=== PATIENT | female | born 1935 | race Caucasian/White ===

== ENCOUNTER 2016-05-16 14:39 | Inpatient (IN) | payer MEDICARE, OTHER ==
--- NOTE | ~2016-05-16 | HP ---
History And Physical [address] [place]. [address] NAME: LOPEZ GARCIA : 37 STATUS : ADM IN [facility]#: [id number] AGE: 80 ADM/REG DATE : 05/16/16 MR#: [id number] REPORT SERV DATE: 05/16/16 DICTATED BY: BUDDY PETERSON DATE: 05/16/16 REPORT STATUS : Draft TRANSCRIBED BY: MODL DATE: 05/16/16 DATE OF ADMISSION: 05/16/2016 HISTORY OF PRESENT ILLNESS: This is a 80-year-old female who comes in for shortness of breath and right leg swelling. The patient is an active individual, and according to her, she is in good health. About four to five days ago, she started having some swelling in her right lower extremity, and then later on, she has been getting some dyspnea on exertion. Two days ago, the daughter noted that she was looking pale and flushed at the same time. The patient noted that when she is having some increasing dyspnea on exertion, but gets better when she sits down. This has gotten worse, finally went to see Dr. Vega, wherein he noted the right leg swelling and did a blood work with a D-dimer that is greater than 20. He then called for a direct admit. The patient did not have any fever or chills, but was having some clammy skin. She denies any dyspnea at rest. She did admit to some dizziness, but no near syncopal or syncopal episode. No cough. There are no chest pains. No new rashes. REVIEW OF SYSTEMS: The rest of the 14-point review of system is negative except as above and that includes no urine or bowel changes. PAST MEDICAL HISTORY: Includes PADs, PVCs, but the patient denies any PAF or any history of atrial fibrillation, hypertension, hypercholesterolemia. She had a hysterectomy, cholecystectomy, five vaginal deliveries, peripheral neuropathy, osteoarthritis, AAA of 4.5 cm, postherpetic neuralgia, history of UTI, annular tear of the lumbar disc at L4-L5, history of H. pylori gastritis, colonic polyps, varicose vein ligation in both legs. ALLERGIES: SHE HAS NO KNOWN DRUG ALLERGIES. MEDICATIONS: Include gabapentin, lisinopril, Lortab, lovastatin, Mobic, promethazine. FAMILY HISTORY: Mom had colon cancer. Dad had CVA. Son has esophageal cancer. Sister with lung cancer. But she denies any family history of blood clots or PEs or blood disorder. SOCIAL HISTORY: The patient does not smoke, drink, or use recreational drugs. Lives with her . They denies any prolonged sitting, recent travel, and the family is saying that she is always active around the house and in her yard. PHYSICAL EXAMINATION: GENERAL: The patient is alert and oriented x3, not in cardiopulmonary distress. VITAL SIGNS: Include a weight of 86.18, height of 5 feet 4 inches, respiratory rate of 16, blood pressure of 120/80, heart rate of 88, with a temperature of 98.6. NECK: She has supple neck. No JVD or carotid bruits. No lymphadenopathy. [place] conjunctivae. Anicteric sclerae. No pharyngeal erythema. LUNGS: No rales, no wheezes. CARDIOVASCULAR: Regular rate and rhythm. No murmurs. ABDOMEN: Positive bowel sounds. Soft, nontender. No masses. Positive edema, right is History And Physical [address] [address] NAME: LOPEZ GARCIA : 37 STATUS : ADM IN [facility]#: [id number] AGE: 80 ADM/REG DATE : 05/16/16 MR#: [id number] REPORT SERV DATE: 05/16/16 DICTATED BY: BUDDY PETERSON DATE: 05/16/16 REPORT STATUS : Draft TRANSCRIBED BY: ARSALAN DATE: 05/16/16 about grade 1 to 2, left is negative. NEURO: Nonlocalizing. LABORATORIES: Reveals a urinalysis which is unremarkable. Blood work reveals a creatinine of 1.12. The rest of the chemistry including troponin and TSH is within normal limits. CBC within normal limits. However, the D-dimer is greater than 20. Chest x-ray, I do not see any acute infiltrates. ASSESSMENT: 1. Dyspnea on exertion. Rule out pulmonary embolism. 2. Right lower extremity deep venous thrombosis. 3. Hypertension. 4. History of abdominal aortic aneurysm. 5. Obesity. 6. Peripheral neuropathy. PLAN: The patient's signs and symptoms, PE, and elevated D-dimer makes me suspicious for a possible PE and right lower extremity DVT. We will empirically start Lovenox and ask case picker to check coverage for the newer anticoagulants. We will check ultrasound, CT, echo, and resume her home medications. This has been discussed with the patient and family and they agreed and understood the plan. MARS/ARSALAN Buddy Peterson M.D. / [id number] CC: Buddy Vega M.D.
--- NOTE | ~2016-05-16 | DS ---
Discharge Summary [facility] [address] [place]. [address] NAME: LOPEZ GARCIA : 37 STATUS : DIS IN PAT#: [id number] AGE: 80 ADM/REG DATE : 05/16/16 MR#: [id number] REPORT SERV DATE: 05/23/16 DICTATED BY: BUDDY PETERSON DATE: 05/22/16 REPORT STATUS : Draft TRANSCRIBED BY: MODLisa DATE: 05/22/16 ADMISSION DATE: 05/16/2016 DISCHARGE DATE: 05/22/2016 FINAL DIAGNOSES: 1. Right upper lung pulmonary embolism. 2. Right lower extremity deep venous thrombosis. 3. Hypertension. 4. Obesity. 5. Thoracic aortic aneurysm. DIAGNOSTIC EXAM: Echocardiogram showing normal left ventricular systolic function with EF of 55%. Mild diastolic dysfunction. Right ventricle is not well seen but probably with normal systolic function. Mild AR. Aneurysmal ascending aorta with maximal dimension of 4.3 cm. CAT scan of the chest with contrast showing moderate right upper lobe pulmonary embolus, no central or left-sided pulmonary embolus demonstrated. Stable right middle lobe pulmonary nodule measuring 4 x 5 mm without appreciable change since 05/20/2009. Stable varices within the anterior mediastinum with prominence of the azygos vein likely due to some stenosis of the left brachiocephalic vein. Stable mild cardiomegaly with moderate calcification of the coronary arteries. Stable aneurysmal dilatation of the ascending thoracic aorta up to 4.4 cm in diameter. Continued nodular changes involving the right thyroid lobe measuring up to 6 mm in size. Ultrasound of the lower extremity showing no evidence of acute left lower extremity DVT. Acute deep thrombosis, right lower extremity from the common femoral to the popliteal vein. HOSPITAL COURSE: Please refer to the H and P done by me dated on 01/13/2017. Briefly this is a 80-year-old female who comes in for shortness of breath. The patient was doing well until 4-5 days ago started having some swelling in the right lower extremity and then later on had dyspnea on exertion. The patient was then brought to the office of Dr. Vega where he believed that the patient had DVT and PE. The patient was then brought here and the test confirmed his findings. The patient was started on Lovenox and Coumadin and did well. We tried to get her to have some newer anticoagulants; however, it will cost her 380 dollars a month and she said she cannot afford it. The patient was then placed on Coumadin and she tolerated it well and discharge INR is 2.1. She also was tested on ambulation and she was doing much better than when she came in, saturating 96% on room air on ambulation. The patient expresses wishes to go home. She said she is going to [facility] where her checks it out. She can also follow up with Dr. Vega for the INR check. The patient will now be discharged on the above diagnosis. She will be on the following medications, lisinopril 40 mg a day and Coumadin 6 mg a day. She was given Coumadin teaching and she is well aware of it as her is also on Coumadin. The patient will follow up with Dr. Vega in one to two weeks. She can get her INR there or in the [facility]. We will try and schedule it on Sunday and the results will be given to Dr. Vega as well. This has been explained to her and she agreed and understood the plan. Discharge Summary [address] [address] NAME: LOPEZ GARCIA : 37 STATUS : DIS IN PAT#: [id number] AGE: 80 ADM/REG DATE : 05/16/16 MR#: [id number] REPORT SERV DATE: 05/23/16 DICTATED BY: BUDDY PETERSON DATE: 05/22/16 REPORT STATUS : Draft TRANSCRIBED BY: ARSALAN DATE: 05/22/16 MARS/ARSALAN Buddy Peterson M.D. / [id number] CC: Buddy Vega M.D.
[2016-05-16 12:33] LABS: HEMATOCRIT 42.3 % (36.0-48.0); HEMOGLOBIN 13.8 g/dL (12.0-16.0); MEAN CORPUS HGB CONC 32.6 g/dL (32.0-36.0); MEAN CORPUSCULAR HEMOGLOB 30.7 pg (26.0-34.0); MEAN PLATELET VOLUME 9.8 fL (9.2-13.0); PLATELET COUNT 183 10/3/uL (150-400); RBC DISTRIBUTION WIDTH 12.8 % (12.0-16.0); WHITE BLOOD CELLS 7.5 10/3/uL (4.5-10.5)
[2016-05-16 12:47] LABS: A/G RATIO 1.2 (0.7-1.9); ALBUMIN 4.1 G/DL (3.5-5.0); CHLORIDE, SERUM 103 MMOL/L (96-112); CO2 (CARBON DIOXIDE) 28 MMOL/L (24-34); CREATININE 1.12 MG/DL (0.55-1.02); GFR AFRICAN AMERICAN 54 ML/MIN (>=60); GFR NON AFRICAN AMERICAN 47 ML/MIN (>=60); GLOBULIN 3.3 G/DL (2.5-4.1); GLUCOSE, SERUM 98 MG/DL (60-99); SGOT(AST) 24 U/L (5-40); SGPT(ALT) 21 U/L (5-65); SODIUM, SERUM 140 MMOL/L (135-148); TOTAL BILIRUBIN 1.3 MG/DL (0-1.2); TOTAL PROTEIN 7.4 G/DL (6.0-8.5); TROPONIN I <0.02 NG/ML (<0.05)
[2016-05-16 13:14] LABS: ALKALINE PHOSPHATASE 100 U/L (45-117); BUN (BLOOD UREA NITROGEN) 28 MG/DL (6-23)
[2016-05-16 13:39] LABS: D-DIMER QUANTITATIVE > 20.00 ug/mLFEU (< 0.50)
[2016-05-16] MEDS ORDERED: LISINOPRIL40 MG PO (15:14)
[2016-05-16 18:17] LABS: INTERNATIONAL NORMAL RATI 1.1 UNITS (-); PROTIME (NOT ORD) 14.2 SEC (12.0-14.5)
[2016-05-16 18:18] LABS: PARTIAL THROMBO TIME 33.2 SEC (22.5-37.2)
[2016-05-17 05:20] LABS: CALCIUM, SERUM 8.1 MG/DL (8.5-10.4); CHLORIDE, SERUM 108 MMOL/L (96-112); CO2 (CARBON DIOXIDE) 26 MMOL/L (24-34); CREATININE 0.87 MG/DL (0.55-1.02); GFR AFRICAN AMERICAN 73 ML/MIN (>=60); GFR NON AFRICAN AMERICAN 63 ML/MIN (>=60); GLUCOSE, SERUM 85 MG/DL (60-99); SODIUM, SERUM 142 MMOL/L (135-148)
[2016-05-17 05:21] LABS: BUN (BLOOD UREA NITROGEN) 24 MG/DL (6-23)
[2016-05-18 05:08] LABS: PROTIME (NOT ORD) 13.4 SEC (12.0-14.5)
[2016-05-19 05:07] LABS: INTERNATIONAL NORMAL RATI 1.1 UNITS (-); PROTIME (NOT ORD) 14.5 SEC (12.0-14.5)
[2016-05-20 06:48] LABS: INTERNATIONAL NORMAL RATI 1.3 UNITS (-); PROTIME (NOT ORD) 15.8 SEC (12.0-14.5)
[2016-05-21 05:55] LABS: INTERNATIONAL NORMAL RATI 1.6 UNITS (-); PROTIME (NOT ORD) 19.2 SEC (12.0-14.5)
[2016-05-22 06:53] LABS: INTERNATIONAL NORMAL RATI 2.1 UNITS (-)
[2016-05-22 06:54] LABS: PROTIME (NOT ORD) 23.5 SEC (12.0-14.5)
[2016-05-22] MEDS ORDERED: C25 PO (09:21)
[2016-10-13] MEDS ORDERED: PRIN20 PO (12:35)
[2016-10-13] MEDS ORDERED: L40 PO (12:36)
[2016-10-13] MEDS ORDERED: LOP25 PO (14:12)
[2016-10-13] MEDS ORDERED: LIPITOR10 PO (14:13)
[2016-10-16] MEDS ORDERED: IMDUR30 PO (10:23)
== END 2016-05-22 11:08 | disposition home or self-care (01) | DRG 299 ==
LOC: 5NO 14:39
PROVIDERS: Internal Medicine
DX: I82.411 Acute embolism and thrombosis of right femoral vein (principal); I26.99 Other pulmonary embolism without acute cor pulmonale; I10 Essential (primary) hypertension; E66.9 Obesity, unspecified; G62.9 Polyneuropathy, unspecified; Z90.49 Acquired absence of other specified parts of digestive tract; Z87.440 Personal history of urinary (tract) infections; E78.00 Pure hypercholesterolemia, unspecified; Z68.34 Body mass index [BMI] 34.0-34.9, adult; I71.2 Thoracic aortic aneurysm, without rupture
CPT/HCPCS: 36415; 71020; 71275; 80048; 80053; 81001; 84443; 84484; 85027; 85379; 85610; 85730; 93005; 93010; 93970; A9270-GY; C8929; Q9957; Q9967

== ENCOUNTER 2016-07-08 08:18 | Emergency (ER) | payer MEDICARE, OTHER ==
[2016-07-08 07:19] LABS: BASOPHILS 0.5 %; BASOPHILS ABSOLUTE 0.02 10/3/uL (0.0-0.16); EOSINOPHILS 4.7 %; EOSINOPHILS ABSOLUTE 0.19 10/3/uL (0.0-0.53); HEMATOCRIT 40.2 % (36.0-48.0); IMMATURE GRANULOCYTES 0.2 %; IMMATURE GRANULOCYTES ABSOLUTE 0.01 10/3/uL (0.0-0.11); LYMPHOCYTES 28.4 %; LYMPHOCYTES ABSOLUTE 1.14 10/3/uL (0.67-4.30); MEAN CORPUS HGB CONC 32.3 g/dL (32.0-36.0); MEAN CORPUSCULAR HEMOGLOB 29.6 pg (26.0-34.0); MEAN CORPUSCULAR VOLUME 91.6 fL (80-100); MEAN PLATELET VOLUME 9.5 fL (9.2-13.0); MONOCYTES 8.2 %; MONOCYTES ABSOLUTE 0.33 10/3/uL (0.21-1.20); NEUTROPHILS ABSOLUTE 2.33 10/3/uL (2.02-8.40); PLATELET COUNT 248 10/3/uL (150-400); RBC DISTRIBUTION WIDTH 13.2 % (12.0-16.0); RED CELL COUNT 4.39 10/6/uL (4.0-5.6)
[2016-07-08 07:27] LABS: INTERNATIONAL NORMAL RATI 2.9 UNITS (-)
[2016-07-08 07:30] LABS: BUN (BLOOD UREA NITROGEN) 30 MG/DL (6-23); CALCIUM, SERUM 8.8 MG/DL (8.5-10.4); CHLORIDE, SERUM 108 MMOL/L (96-112); CO2 (CARBON DIOXIDE) 29 MMOL/L (24-34); CREATININE 0.88 MG/DL (0.55-1.02); GFR AFRICAN AMERICAN 72 ML/MIN (>=60); GFR NON AFRICAN AMERICAN 62 ML/MIN (>=60); GLUCOSE, SERUM 100 MG/DL (60-99); POTASSIUM, SERUM 4.2 MMOL/L (3.5-5.3); SODIUM, SERUM 142 MMOL/L (135-148)
[2016-07-08 07:34] LABS: PROTIME (NOT ORD) 30.3 SEC (12.0-14.5)
[2016-07-08 07:37] LABS: MANUAL DIFF NO %
[~2016-07-08 08:18] MED LIST: C25 PO; LISINOPRIL40 MG PO
[2016-10-13] MEDS ORDERED: PRIN20 PO (12:35)
[2016-10-13] MEDS ORDERED: L40 PO (12:36)
[2016-10-13] MEDS ORDERED: LOP25 PO (14:12)
[2016-10-13] MEDS ORDERED: LIPITOR10 PO (14:13)
[2016-10-16] MEDS ORDERED: IMDUR30 PO (10:23)
== END 2016-07-08 08:20 | disposition home or self-care (01) ==
LOC: ER 08:18
PROVIDERS: Nurse Practitioner
PROC: 0W3Q7ZZ Control Bleeding in Respiratory Tract, Via Natural or Artificial Opening (ICD-10-PCS; principal; 2016-07-08)
DX: R04.0 Epistaxis (principal); I10 Essential (primary) hypertension; Z86.718 Personal history of other venous thrombosis and embolism; Z79.01 Long term (current) use of anticoagulants; Z79.899 Other long term (current) drug therapy
CPT/HCPCS: 80048; 85025; 85610; 99283; A9270-GY